=== PATIENT | male | born 1975 | race Caucasian/White ===

== ENCOUNTER 2016-08-06 09:11 | Emergency (ER) | payer MEDICAID ==
[~2016-08-06] VITALS: Wt 79.5 kg
[2016-08-06] MEDS ORDERED: morphine 2 MG INJ IV STA (09:53)
[2016-08-06] MEDS ORDERED: ONDANSETRON 4 MG INJ IV STA (09:53)
[2016-08-06 10:27] LABS: ADD SCAN DIFF NO
[2016-08-06 10:30] LABS: BASOPHILS % 0.5 % (0.0-2.0); EOSINOPHILS # 0.2 10^3/ul (0.0-0.5); EOSINOPHILS % 2.3 % (0.0-7.0); HEMATOCRIT 44.2 % (42.0-52.0); HEMOGLOBIN 15.3 g/dl (14.0-18.0); LYMPHOCYTES # 1.3 10^3/ul (0.8-2.9); LYMPHOCYTES % 16.3 % (15.0-51.0); MEAN CORPUSCULAR HEMOGLOBIN 31.7 pg (29.0-33.0); MEAN CORPUSCULAR HGB CONC 34.6 g/dl (32.0-37.0); MEAN CORPUSCULAR VOLUME 91.5 fl (82.0-101.0); MEAN PLATELET VOLUME 9.9 fl (7.4-10.4); MONOCYTE # 0.5 10^3/ul (0.3-0.9); MONOCYTES % 6.9 % (0.0-11.0); NEUTROPHIL # 5.8 10^3/ul (1.6-7.5); NEUTROPHILS % 73.5 % (39.0-77.0); PLATELET COUNT 328 10^3/UL (140-415); RED BLOOD COUNT 4.83 10^6/ul (4.70-6.10); RED CELL DISTRIBUTION WIDTH 11.6 % (11.5-14.5); WHITE BLOOD COUNT 7.9 10^3/ul (4.8-10.8)
[2016-08-06 10:50] LABS: ALBUMIN 4.5 g/dl (3.3-4.9); POTASSIUM 4.3 mmol/L (3.5-5.1)
[2016-08-06 10:52] LABS: CREATININE 0.94 mg/dl (0.61-1.24)
[2016-08-06 10:53] LABS: ALBUMIN/GLOBULIN RATIO 1.4; TOTAL PROTEIN 7.7 g/dl (6.1-8.1)
[2016-08-06 10:54] LABS: CALCIUM 9.9 mg/dl (8.4-10.2)
--- NOTE | 2016-08-06 11:04 | RADRPT ---
PROCEDURE: US Scrotal CLINICAL INDICATION: Left scrotal pain TECHNIQUE: Images were taken during real time interrogation of the scrotum. Color Doppler was also performed. COMPARISON: None FINDINGS: Right Testicle: Is normal in size measuring 5.5 x 3.2 x 2.7 cm No mass is identified. The echotexture is normal. There is normal vascular flow on color Doppler. There is no hydrocele. No varicocele is evident. Left testicle: Is normal in size measuring 4.7 x 3.6 x 2.4 cm No mass is identified and The echotexture appears normal. There is normal vascular flow on color Doppler. There is no hydrocele. No varicocele is identified. Right Epidydemus: There is a 1 cm in maximal diameter right epididymal head cyst. Left Epedidymus: Appears normal. Within the left anterior scrotal sac there is a 2.4 x 1.3 x 1.1 cm fluid collection with low level i nternal echoes. There is slightly increased vascularity within the left inguinal canal with no mass identified. IMPRESSION: 1. Normal testicles noted bilaterally with vascular flow demonstrated in each. 2. 1 cm in maximal diameter cyst within the right epididymal head. 3. 2.4 x 1 0.3 x 1 x 1 cm fluid collection with low level internal echoes seen within the left ante rior scrotal sac. Color flow was not placed over this area to assess vascularity. 4. Slightly increased vascularity noted within the left inguinal canal with no mass or hernia ident ified. Physician Haroldo Date Time Electronically viewed and signed by Physician Haroldo on 08/06/2016 11:04 /
--- NOTE | 2016-08-06 11:38 | ERD ---
ER Documentation Chief Complaint Date/Time DATE: 08/06/16 TIME: 11:36 Chief Complaint Left testicular pain HPI 41 yo male comes in with left testicular pain that started gradually this morning. He states he was asleep when it started, it felt a sharp radiating pain to his abdomen at first but now he states the pain is localized to his left testicle. Described as achy. He denies any dysuria, urgency or frequency. Denies fever or vomiting. ROS All systems reviewed and are negative except as per history of present illness. Medications Home Meds Active Scripts Ibuprofen* (Motrin*) 600 Mg Tab, 600 MG PO Q6, #30 TAB Prov:YUNIER QUISPE PA-C 08/06/16 Doxycycline Hyclate* (Doxycycline Hyclate*) 100 Mg Tablet.dr, 100 MG PO BID for 7 Days, TAB Prov:YUNIER QUISPE PA-C 08/06/16 Allergies Allergies: Coded Allergies: No Known Allergy (Verified , 03/02/14) PMhx/Soc History of Surgery: No Anesthesia Reaction: No Hx Neurological Disorder: No Hx Respiratory Disorders: No Hx Cardiac Disorders: No Hx Psychiatric Problems: No Hx Miscellaneous Medical Probl: No Hx Alcohol Use: No Hx Substance Use: No Hx Tobacco Use: No Smoking Status: Never smoker Physical Exam Vitals Vital Signs Date Time Temp Pulse Resp B/P Pulse Ox O2 Delivery O2 Flow Rate FiO2 08/06/16 09:27 98.8 62 17 136/75 97 Physical Exam General: Well-developed, well-nourished. The patient appears in no acute distress. HEENT: Head is normocephalic, atraumatic. No scleral icterus. Neck: Supple. Nontender. Lungs: Clear to auscultation. Normal air movement. Heart: Regular rate and rhythm. S1 and S2 are normal. No murmurs, gallops, or rubs. Abdomen: Nondistended. Soft, nontender, no masses. Exam: Scrotum: Normal Hernia: None Testes/Epid: Non-tender w/ normal lie. Left epididymis mildly tender to palpation. Cremaster: Reflex intact Lymph: No inguinal lymphadenopathy Discharge: None Extremities: No clubbing or cyanosis. Moving extremities x 4. No weakness. Neurologic: Alert and oriented 3. No focal deficits. Normal speech and gait. Skin: Normal turgor. No rash or lesions. Result Diagram: 08/06/16 1018 08/06/16 1018 Results 24 hrs Laboratory Tests Test 08/06/16 10:18 08/06/16 10:51 Alanine Aminotransferase (ALT/SGPT) 41IU/L Albumin 4.5g/dl Albumin/Globulin Ratio 1.40 Alkaline Phosphatase 122IU/L Anion Gap 17 Aspartate Amino Transf (AST/SGOT) 39IU/L Basophils # 0.010^3/ul Basophils % 0.5% Blood Urea Nitrogen 16mg/dl Calcium Level 9.9mg/dl Carbon Dioxide Level 26mmol/L Chloride Level 105mmol/L Creatinine 0.94mg/dl Direct Bilirubin 0.00mg/dl Eosinophils # 0.210^3/ul Eosinophils % 2.3% Globulin 3.20g/dl Glucose Level 93mg/dl Hematocrit 44.2% Hemoglobin 15.3g/dl Indirect Bilirubin 1.0mg/dl Lymphocytes # 1.310^3/ul Lymphocytes % 16.3% Mean Corpuscular Hemoglobin 31.7pg Mean Corpuscular Hemoglobin Concent 34.6g/dl Mean Corpuscular Volume 91.5fl Mean Platelet Volume 9.9fl Monocytes # 0.510^3/ul Monocytes % 6.9% Neutrophils # 5.810^3/ul Neutrophils % 73.5% Nucleated Red Blood Cells # 0.010^3/ul Nucleated Red Blood Cells % 0.0/100WBC Platelet Count 33574^3/UL Potassium Level 4.3mmol/L Red Blood Count 4.8310^6/ul Red Cell Distribution Width 11.6% Sodium Level 144mmol/L Total Bilirubin 1.0mg/dl Total Protein 7.7g/dl White Blood Count 7.910^3/ul Bedside Urine Blood 3+ Bedside Urine Glucose (UA) Negative Bedside Urine Ketones (LAB) Negative Bedside Urine Leukocyte Esterase (L Negative Bedside Urine Nitrite (LAB) Negative Bedside Urine Protein (LAB) 1+ Bedside Urine pH (LAB) 5.5 Current Medications Medications (Trade) Dose Ordered Sig/Priscilla Route PRN Reason Start Time Stop Time Status Last Admin Dose Admin Morphine Sulfate (morphine) 2 mg ONCE STAT IV 08/06/16 09:53 08/06/16 09:55 DC 08/06/16 10:22 Ondansetron HCl (Zofran Inj) 4 mg ONCE STAT IV 08/06/16 09:53 08/06/16 09:55 DC 08/06/16 10:22 PROCEDURE: US Scrotal CLINICAL INDICATION: Left scrotal pain TECHNIQUE: Images were taken during real time interrogation of the scrotum. Color Doppler was also performed. COMPARISON: None FINDINGS: Right Testicle: Is normal in size measuring 5.5 x 3.2 x 2.7 cm No mass is identified. The echotexture is normal. There is normal vascular flow on color Doppler. There is no hydrocele. No varicocele is evident. Left testicle: Is normal in size measuring 4.7 x 3.6 x 2.4 cm No mass is identified and The echotexture appears normal. There is normal vascular flow on color Doppler. There is no hydrocele. No varicocele is identified. Right Epidydemus: There is a 1 cm in maximal diameter right epididymal head cyst. Left Epedidymus: Appears normal. Within the left anterior scrotal sac there is a 2.4 x 1.3 x 1.1 cm fluid collection with low level internal echoes. There is slightly increased vascularity within the left inguinal canal with no mass identified. IMPRESSION: 1. Normal testicles noted bilaterally with vascular flow demonstrated in each. 2. 1 cm in maximal diameter cyst within the right epididymal head. 3. 2.4 x 1 0.3 x 1 x 1 cm fluid collection with low level internal echoes seen within the left anterior scrotal sac. Color flow was not placed over this area to assess vascularity. 4. Slightly increased vascularity noted within the left inguinal canal with no mass or hernia identified. Physician Haroldo Date Time Electronically viewed and signed by Physician Haroldo on 08/06/2016 11:04 RH/ Procedures/MDM MDM: 41-year-old male comes in with left-sided scrotal pain that occurred gradually this morning, is on the lateral aspect of the scrotum, there was some epididymal pain on palpation, patient will be covered for possible epididymitis as well. Differentials also include testicular torsion, testicular mass, diverticulitis, hernia, however ultrasound is unremarkable, there are no signs of an acute abdominal process. No signs of any neurologic emergency. I have asked patient to recheck with his doctor, in the next 1-2 days to make sure symptoms are getting better, if symptoms become worse patient may return to the emergency room. The case was reviewed and discussed with Dr. Lemon, who also examined the patient, who agrees with the plan of care including labs, treatment, and advanced imaging as appropriate. Departure Diagnosis: Primary Impression: Groin pain, lower left quadrant Condition: YUNIER Moreno PA-C Aug 06, 2016 11:38
[2016-08-06 11:48] LABS: URINE BLOOD (Dip) POC 3+ (NEGATIVE)
[2016-08-06] MEDS ORDERED: IBUP-1542 PO (11:57)
[2016-08-06] MEDS ORDERED: DOXY100T20 PO (11:57)
== END 2016-08-06 12:11 | disposition home or self-care (01) ==
LOC: FTE 09:11
DX: R10.32 Left lower quadrant pain (principal)
CPT/HCPCS: 36415; 76870; 80053; 81003; 85025; 87591; 96374; 96375; J2270; J2405; Z7502